=== PATIENT | male | born 1980 | race Caucasian/White ===

== ENCOUNTER 2016-10-17 08:29 | Emergency (ER) | payer BC ==
[2016-10-17 08:37] VITALS: TEMP 97.7
[2016-10-17] MEDS ORDERED: METOCLOPRAMIDE 10 MG/2 ML VIAL IVP ONE (08:52)
[2016-10-17] MEDS ORDERED: NS 1,000 ML IV ONE ×2 (08:52)
[2016-10-17 09:22] LABS: % IMMATURE GRANULYOCYTES 0.6 % (0.0-1.1); ABSOLUTE IMMATURE GRANULOCYTES 0.05 10^3/uL (0.00-0.10); ADD DIFF? NO; ADD MORPH? NO; ADD SCAN? NO; ATYPICAL LYMPHOCYTE FLAG 0 (0-99); FRAGMENT RBC FLAG 0 (0-99); HEMATOCRIT 41.4 % (40.0-51.0); HEMOGLOBIN 13.9 g/dL (13.7-17.5); LEFT SHIFT FLG 10 (0-99); LIPEMIA HEMOLYSIS FLAG 80 (0-99); MEAN CELL HEMOGLOBIN 29.4 pg (27.9-34.1); MEAN CELL HEMOGLOBIN CONCENTR. 33.6 g/dL (32.4-36.7); MEAN CELL VOLUME 87.5 fL (81.5-99.8); MEAN PLATELET VOLUME 9.7 fL (8.7-11.7); PLATELET CLUMPS FLAG 0 (0-99); PLATELET COUNT 225 10^3/uL (150-400); RED BLOOD CELL COUNT 4.73 10^6/uL (4.40-6.38); RED CELL DISTRIBUTION WIDTH 12.5 % (11.5-15.2)
--- NOTE | 2016-10-17 09:22 | EDPHY ---
H & P Stated Complaint: cyclical vomiting syndrome Time Seen by Provider: 10/17/16 08:46 HPI/ROS: Chief complaint: Nausea, vomiting and diarrhea History of present illness: This is a 36-year-old male with a history of gastroparesis and cyclic vomiting syndrome who presents to the emergency department for nausea, vomiting and diarrhea. Patient reports the onset of symptoms this morning. Initially vomiting than diarrhea. Multiple episodes described as nonbloody. He has had associated abdominal cramping. He states his gastroparesis and cyclic vomiting syndrome history GERD by large meals or marijuana use, does report a large meal late last night and recent marijuana use. Patient denies other associated signs or symptoms including no fevers or chills, no urinary symptoms. This is a typical exacerbation. He is visiting from out of town. Review of systems: A 10 point review of systems was obtained and other than described above was negative - Personal History Current Tetanus/Diphtheria Vaccine: Yes - Medical/Surgical History Hx Asthma: No Hx Chronic Respiratory Disease: No Hx Diabetes: No Hx Cardiac Disease: No Hx Renal Disease: No Hx Cirrhosis: No Hx Alcoholism: No Hx HIV/AIDS: No Hx Splenectomy or Spleen Trauma: No Other PMH: cyclical vomiting/bilat knee surg - Social History Smoking Status: Never smoked - Physical Exam Exam: General Appearance: Alert, actively vomiting. Eyes: Pupils equal and round no pallor or injection. ENT, Mouth: Mucous membranes moist. Respiratory: There are no retractions, lungs are clear to auscultation. Cardiovascular: Regular rate and rhythm. Gastrointestinal: Bowel sounds are normal. Abdomen is soft, nondistended, nontender. Neurological: Alert and oriented x4. Strength and sensation intact and symmetrical. Skin: Warm and dry, no rashes. Musculoskeletal: Neck is supple non tender. Extremities are symmetrical, full range of motion. Psychiatric: Patient is oriented X 3, there is no agitation. Constitutional: Initial Vital Signs Temperature (C) 36.5 C 10/17/16 08:34 Heart Rate 60 10/17/16 08:34 Respiratory Rate 18 10/17/16 08:34 Blood Pressure 161/106 H 10/17/16 08:34 O2 Sat (%) 99 10/17/16 08:34 O2 Delivery Mode Room Air Allergies/Adverse Reactions: prochlorperazine [From Compazine] Allergy (Verified 10/17/16 08:34) Home Medications: Medication Instructions Recorded Lexapro 10/17/16 Ondansetron 10/17/16 Medical Decision Making ED Course/Re-evaluation: Patient seen under the supervision of my secondary supervising physician Dr. Justin Jefferson. Patient presents to the emergency room for nausea, vomiting and diarrhea. He reports a history of gastroparesis and cyclic vomiting syndrome. He believes he exacerbated his conditions by eating a large meal last night and has been smoking marijuana recently. This is a typical exacerbation. Patient is nontoxic. He has a benign abdominal exam. Blood studies are unremarkable. I do not believe imaging studies are warranted. He is symptomatically treated with improvement in symptoms. He is tolerating oral challenges. He will be discharged home. Home care is discussed. He is asked to maintain a normal diet for himself and to avoid marijuana. He is to follow up with his primary care doctor for recheck. Return precautions are given. Patient voiced understanding and agreement with plan. Differential Diagnosis: Included but not limited to cyclic vomiting syndrome, gastritis, gastroenteritis , biliary tract disease, pancreatitis, colitis - Data Points Laboratory Results: Laboratory Results 10/17/16 09:10 10/17/16 09:10 10/17/16 10/17/16 09:10 09:10 WBC 8.86 10^3/uL 10^3/uL (3.80-9.50) RBC 4.73 10^6/uL 10^6/uL (4.40-6.38) Hgb 13.9 g/dL g/dL (13.7-17.5) Hct 41.4 % % (40.0-51.0) MCV 87.5 fL fL (81.5-99.8) MCH 29.4 pg pg (27.9-34.1) MCHC 33.6 g/dL g/dL (32.4-36.7) RDW 12.5 % % (11.5-15.2) Plt Count 225 10^3/uL 10^3/uL (150-400) MPV 9.7 fL fL (8.7-11.7) Neut % (Auto) 77.1 % H % (39.3-74.2) Lymph % (Auto) 14.2 % L % (15.0-45.0) Moody % (Auto) 5.9 % % (4.5-13.0) Eos % (Auto) 1.7 % % (0.6-7.6) Baso % (Auto) 0.5 % % (0.3-1.7) Nucleat RBC Rel Count 0.0 % % (0.0-0.2) Absolute Neuts (auto) 6.84 10^3/uL H 10^3/uL (1.70-6.50) Absolute Lymphs (auto) 1.26 10^3/uL 10^3/uL (1.00-3.00) Absolute Monos (auto) 0.52 10^3/uL 10^3/uL (0.30-0.80) Absolute Eos (auto) 0.15 10^3/uL 10^3/uL (0.03-0.40) Absolute Basos (auto) 0.04 10^3/uL 10^3/uL (0.02-0.10) Absolute Nucleated RBC 0.00 10^3/uL 10^3/uL (0-0.01) Immature Gran % 0.6 % % (0.0-1.1) Immature Gran # 0.05 10^3/uL 10^3/uL (0.00-0.10) Sodium 142 mEq/L mEq/L (134-144) Potassium 4.0 mEq/L mEq/L (3.5-5.2) Chloride 105 mEq/L mEq/L (97-110) Carbon Dioxide 23 mEq/l mEq/l (22-31) Anion Gap 14 mEq/L mEq/L (8-16) BUN 23 mg/dL mg/dL (7-23) Creatinine 1.0 mg/dL mg/dL (0.7-1.3) Estimated GFR > 60 Glucose 105 mg/dL H mg/dL (70-100) Calcium 9.6 mg/dL mg/dL (8.5-10.4) Total Bilirubin 0.5 mg/dL mg/dL (0.1-1.4) Conjugated Bilirubin 0.4 mg/dL mg/dL (0.0-0.5) Unconjugated Bilirubin 0.1 mg/dL mg/dL (0.0-1.1) AST 27 IU/L IU/L (17-59) ALT 60 IU/L IU/L (21-72) Alkaline Phosphatase 62 IU/L IU/L (38-126) Total Protein 7.8 g/dL g/dL (6.3-8.2) Albumin 4.8 g/dL g/dL (3.5-5.0) Lipase 184.0 IU/L IU/L (23-300) Medications Given: Discontinued Medications Diphenhydramine HCl (Benadryl Injection) 50 mg IVP EDNOW ONE Stop: 10/17/16 10:57 Last Admin: 10/17/16 10:57 Dose: 50 mg Haloperidol Lactate (Haldol Injection) 2.5 mg IVP EDNOW ONE Stop: 10/17/16 10:53 Last Admin: 10/17/16 10:05 Dose: 2.5 mg Sodium Chloride (Ns) 1,000 mls @ 0 mls/hr IV ONCE ONE; Wide Open PRN Reason: Protocol Stop: 10/17/16 08:53 Last Admin: 10/17/16 09:12 Dose: 1,000 mls Sodium Chloride (Ns) 1,000 mls @ 0 mls/hr IV ONCE ONE; Wide Open PRN Reason: Protocol Stop: 10/17/16 08:53 Last Admin: 10/17/16 09:20 Dose: 1,000 mls Lorazepam (Ativan Injection) 1 mg IVP EDNOW ONE Stop: 10/17/16 11:15 Last Admin: 10/17/16 11:26 Dose: 1 mg Metoclopramide HCl (Reglan Injection) 10 mg IVP EDNOW ONE Stop: 10/17/16 08:53 Last Admin: 10/17/16 09:20 Dose: 10 mg Departure - Departure Disposition: Home, Routine, Self-Care Clinical Impression: Vomiting Qualifiers: Vomiting type: unspecified Vomiting Intractability: non-intractable Nausea presence: with nausea Qualified Code(s): R11.2 - Nausea with vomiting, unspecified Diarrhea Qualifiers: Diarrhea type: unspecified type Qualified Code(s): R19.7 - Diarrhea, unspecified Condition: Good Instructions: Acute Nausea and Vomiting (ED) Additional Instructions: Follow-up with you primary care doctor for recheck If symptoms worsen or new symptoms develop return to the emergency room for recheck Referrals: DAVID CHARLES [Other] - As per Instructions
[2016-10-17] MEDS ORDERED: HALOPERIDOL LACT 5 MG/ML INJ ONE (09:25)
[2016-10-17 09:32] LABS: ALANINE AMINOTRANSFERASE 60 IU/L (21-72); ALBUMIN 4.8 g/dL (3.5-5.0); ALKALINE PHOSPHATASE 62 IU/L (38-126); ANION GAP 14 mEq/L (8-16); ASPARTATE AMINOTRANSFERASE 27 IU/L (17-59); BILIRUBIN,TOTAL 0.5 mg/dL (0.1-1.4); BILIRUBIN-CONJUGATED 0.4 mg/dL (0.0-0.5); BILIRUBIN-UNCONJUGATED 0.1 mg/dL (0.0-1.1); CALCIUM 9.6 mg/dL (8.5-10.4); CARBON DIOXIDE 23 mEq/l (22-31); CHLORIDE 105 mEq/L (97-110); GLOMERULAR FILTRATION RATE > 60; GLUCOSE 105 mg/dL (70-100); SODIUM 142 mEq/L (134-144); TOTAL PROTEIN 7.8 g/dL (6.3-8.2)
[2016-10-17 10:51] VITALS: BP 144/76; PULSE 81; RESP 16; O2SAT 97
[2016-10-17] MEDS ORDERED: HALOPERIDOL LACT 5 MG/ML INJ IVP ONE (10:52)
[2016-10-17] MEDS ORDERED: LORazepam 2 MG/ML INJ IVP ONE (11:14)
== END 2016-10-17 12:25 | disposition home or self-care (01) ==
DX: R11.2 Nausea with vomiting, unspecified (principal); R19.7 Diarrhea, unspecified
CPT/HCPCS: 96374; J1200; J2060; J2765